=== PATIENT | female | born 1950 | race Caucasian/White ===

== ENCOUNTER 2021-09-09 09:11 | Inpatient (IN) | payer MEDICARE, OTHER ==
[~2021-09-09] VITALS: Ht 152.4 cm; Wt 70.3 kg
[2021-09-09] VITALS (11 sets, daily range): BP systolic 107–178; BP diastolic 15–111
[2021-09-09] MEDS ORDERED: cefazolin/dext.iso 2gm/100ml 100 ML IV ONE (09:35)
[2021-09-09] MEDS ORDERED: RIVA20TA PO (09:51)
[2021-09-09] MEDS ORDERED: AMLO2.5T2 PO (09:51)
[2021-09-09] MEDS ORDERED: CETI10CA19 PO (09:51)
[2021-09-09] MEDS ORDERED: LOSA25TA96 PO (09:51)
[2021-09-09] MEDS ORDERED: CHOL400T57 PO (09:51)
[2021-09-09] MEDS ORDERED: ATOR20TA PO (09:51)
[2021-09-09] MEDS ORDERED: HYDR25TA4 PO (09:51)
[2021-09-09] MEDS ORDERED: FLUT16SP2 BOTHNARES (09:51)
[2021-09-09] MEDS ORDERED: MULT-955 PO (09:51)
[2021-09-09] MEDS ORDERED: CAYE450C PO (09:51)
[2021-09-09] MEDS ORDERED: normal saline 1000ml 1,000 ML IV SCH ×2 (10:30→14:30)
[2021-09-09 10:49] LABS: ALBUMIN 4.4 G/DL (3.4-5.0); ANION GAP 10 (8-16); BASOPHILS # (AUTO) 0.1 X10'3 (0-0.2); BASOPHILS % (AUTO) 0.9 % (0-1); BLOOD UREA NITROGEN 32 MG/DL (7-18); BUN/CREATININE RATIO 34.4 (6.6-38.0); CALCIUM 10.2 MG/DL (8.5-10.1); CHLORIDE 105 MMOL/L (99-107); CREATININE 0.93 MG/DL (0.40-0.90); EOSINOPHILS # (AUTO) 0.1 X10'3 (0-0.9); EOSINOPHILS % (AUTO) 1.6 % (0-6); GLUCOSE 98 MG/DL (70-104); HEMOGLOBIN 14.6 g/dl (12.0-16.0); LYMPHOCYTES # (AUTO) 1.5 X10'3 (1.1-4.8); LYMPHOCYTES % (AUTO) 17.1 % (21-51); MAGNESIUM 1.8 MG/DL (1.5-2.4); MEAN CORPUSCULAR HEMOGLOBIN 27.9 PG (27.0-31.0); MEAN CORPUSCULAR HGB CONC 33.3 g/dL (33.0-36.5); MEAN PLATELET VOLUME 9.8 FL (7.4-10.4); MONOCYTES # (AUTO) 0.7 X10'3 (0-0.9); MONOCYTES % (AUTO) 7.7 % (2-12); NEUTROPHILS # (AUTO) 6.3 X10'3 (1.8-7.7); NEUTROPHILS % (AUTO) 72.7 % (42-75); PLATELET COUNT 215 X10'3 (140-440); POTASSIUM 3.4 MMOL/L (3.5-5.1); RED BLOOD COUNT 5.24 X10'6 (4.20-5.60); RED CELL DISTRIBUTION WIDTH 14.3 % (11.5-14.5); SODIUM 142 MMOL/L (135-145); TOTAL CARBON DIOXIDE 27.2 MMOL/L (24-32); WHITE BLOOD COUNT 8.7 X10'3 (4.5-11.0); eGFR 59 ML/MIN
[2021-09-09] MEDS ORDERED: midazolam 1 mg/ML 2ml injection ONE ×2 (12:25→13:11)
[2021-09-09] MEDS ORDERED: iohexol 350MG/ML 100ml bottle IV ONE ×2 (12:25→13:43)
[2021-09-09] MEDS ORDERED: LIDOcaine 1% W/epiNEPHrine 1:100,000 20ml vial ONE (12:25)
[2021-09-09] MEDS ORDERED: fentaNYL/PF 50MCG/1 ML 2ML syringe ONE (12:25)
[2021-09-09] MEDS ORDERED: heparin 1,000 UNITS/NS 500ml 1,500 ML ONE (12:25)
[2021-09-09] MEDS ORDERED: heparin 1,000 UNITS/NS 500ml 500 ML ONE (12:58)
--- NOTE | 2021-09-09 14:20 | NUR ---
Report received from cardiac director of cardiac cath lab [facility]
[2021-09-09] MEDS ORDERED: HYDROcodone/acetaminophen 10/325mg tab PO PRN (15:05)
[2021-09-09] MEDS ORDERED: HYDROcodone/acetaminophen 5mg/325mg tablet PO PRN (15:05)
--- NOTE | 2021-09-09 16:00 | NUR ---
notified pt has not voided since yesterday @ approx 2030 per pt. Bladder scan @[id number]=[id number]. No orders received. Addendum: 09/09/21 at 1925 by Nicole Vega RN Omit 2/2 [facility] pt
--- NOTE | 2021-09-09 16:45 | NUR ---
Dr Fatima notified of elevated BP. Message left.
--- NOTE | 2021-09-09 18:10 | NUR ---
Problems reprioritized. Patient report given, questions answered & plan of care reviewed with YURI Calhoun.
[2021-09-10 06:00] VITALS: BP 159/60
--- NOTE | 2021-09-10 06:20 | NUR ---
Patient in room PCU 3013. I have received report from YURI Roberts and had the opportunity to ask questions and assume patient care.
--- NOTE | 2021-09-10 06:34 | NUR ---
Problems reprioritized. Patient report given, questions answered & plan of care reviewed with Nicole WELCH Addendum: 09/10/21 at 0635 by Alejandra Alvarado RN Amended: Links added.
--- NOTE | 2021-09-10 12:30 | NUR ---
DC inst provided to pt. IV DC'd, tip intact. All belongings sent w/pt. Pt ambulated to vehicle.
== END 2021-09-10 12:30 | disposition home or self-care (01) | DRG 229 ==
LOC: SSTAY O 09:11 → PCU 3S 10:26
PROVIDERS: ADMIT Internal Medicine Cardiovascular Disease; ATTEND Internal Medicine Cardiovascular Disease
PROC: 02HK3NZ Insertion of Intracardiac Pacemaker into Right Ventricle, Percutaneous Approach (ICD-10-PCS; principal; 2021-09-09)
DX: I48.20 Chronic atrial fibrillation, unspecified (principal); Z00.6 Encounter for examination for normal comparison and control in clinical research program; I49.8 Other specified cardiac arrhythmias
CPT/HCPCS: 33274; 36415; 71045; 80048; 83735; 85025; 85610; 93005; 99152; 99153; A4620; A6258; C1760; C1769; C1894; G0378; J1644; J2250; J3010; J3370; J3490; J7030; Q9967